=== PATIENT | male | born 1990 | race Caucasian/White ===

== ENCOUNTER 2018-05-01 00:47 | Inpatient (IN) ==
[2018-05-01] MEDS ORDERED: Diphtheria/Tetanus/Pertussis Vaccine Inj 0.5 ML Syringe IM ONE (01:16)
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
[2018-05-01 02:00] LABS: Baso % (Auto) 0.5 % (0.0-2.0); Eos # (Auto) 0.1 th/mm3 (0.0-0.4); Eos % (Auto) 1.4 % (0.0-4.0); Hematocrit 42.4 % (39.0-51.0); Hemoglobin 15.3 gm/dL (13.0-17.0); Lymph # (Auto) 2.3 th/mm3 (1.0-4.8); Lymph % (Auto) 28.6 % (9.0-44.0); Mean Corpuscular Hemoglobin 32.8 pg (27.0-34.0); Mean Corpuscular Volume 91.1 fL (80.0-100.0); Mean Platelet Volume 9.1 fL (7.0-11.0); Mono # (Auto) 0.6 th/mm3 (0.0-0.9); Neut # (Auto) 4.9 th/mm3 (1.8-7.7); Neut % (Auto) 61.5 % (16.0-70.0); Platelet Count 214 th/mm3 (150-450); Red Blood Count 4.66 mil/mm3 (4.50-5.90); Red Cell Distribution Width 12.3 % (11.6-17.2); White Blood Count 7.9 th/mm3 (4.0-11.0)
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
[2018-05-01 02:01] LABS: Mean Corpuscular HGB Conc 36.1 % (32.0-36.0)
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
[2018-05-01 02:06] LABS: INR 1.1 Ratio; Prothrombin Time 10.7 sec (9.8-11.6)
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
--- NOTE | 2018-05-01 02:11 | XR ---
EXAM DATE: 05/01/2018 2:04 AM EST AGE/SEX: 28 years / Male INDICATIONS: Shortness of breath. CLINICAL DATA: This is the patient's initial encounter. Patient reports that signs and symptoms have been present for 1 day and indicates a pain score of 0/10. MEDICAL/SURGICAL HISTORY: None. None. COMPARISON: No prior exams available for comparison. FINDINGS: A single AP view of the chest demonstrates the lungs to be symmetrically aerated without evidence of mass, infiltrate or effusion. The cardiomediastinal contours are unremarkable. Osseous structures a re intact. There appears to be some foreign material seen over the medial upper arm soft tissues. CONCLUSION: No acute cardiopulmonary process. Suspected foreign material seen in the medial upper arm soft tissues. Electronically signed by: Armen Espino MD Board Certified Radiologist 05/01/2018 2:10 AM EST
[2018-05-01 02:13] LABS: Alkaline Phosphatase 74 U/L (45-117); Thyroid Stimulating Hormone 0.816 uIU/mL (0.358-3.740); Total Protein 7.5 g/dL (6.4-8.2)
[2018-05-01 02:14] LABS: Alanine Aminotransferase 22 U/L (12-78); Albumin 4.2 g/dL (3.4-5.0); Anion Gap 8 meq/L (5-15); Aspartate Aminotransferase 18 U/L (15-37); Blood Urea Nitrogen 13 mg/dL (7-18); Calcium 8.6 mg/dL (8.5-10.1); Carbon Dioxide 25.3 meq/L (21.0-32.0); Chloride 107 meq/L (98-107); Glomerular Filtration Rate 66 mL/min (>89); Glucose,Random 89 mg/dL (74-106); Magnesium 2.3 mg/dL (1.5-2.5); Potassium 3.6 meq/L (3.5-5.1); Sodium 140 meq/L (136-145)
[2018-05-01 02:16] LABS: Activated Partial Thrombo Time 26.2 sec (23.4-31.7)
[2018-05-01] MEDS ORDERED: Morphine Inj 4 MG/ML Vial IV.PUSH ONE ×2 (02:21→04:07)
[2018-05-01] MEDS ORDERED: ceFAZolin 2 GM Premix Inj 2 GM/50 ML PIGGYBACK IV.SIG ONE (02:28)
[2018-05-01 02:41] LABS: Platelet Estimate Normal (Normal); Platelet Morphology Normal (Normal)
[2018-05-01 08:19] LABS: Amphetamine Screen,Urine Neg (Neg); Barbiturate Screen,Urine Neg (Neg); Cannabinoid Screen,Urine Pos (Neg); Cocaine Screen,Urine Pos (Neg)
[2018-05-01 08:25] LABS: Opiate Screen,Urine Pos (Neg)
[2018-05-01] MEDS ORDERED: Aluminum/Magnesium/Simethacone Susp 30 ML UDC PO PRN (13:43)
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
[2018-05-01] MEDS: Acetaminophen 325 MG Tablet PO PRN (21:39)
[2018-05-02 09:02] LABS: Calcium 9.3 mg/dL (8.5-10.1); Carbon Dioxide 29.9 meq/L (21.0-32.0); Potassium 3.8 meq/L (3.5-5.1)
[2018-05-02 09:07] LABS: Chol/HDL Ratio 8.16 Ratio; HDL Cholesterol 20.2 mg/dL (40.0-60.0)
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
[2018-05-02] MEDS: Acetaminophen 325 MG Tablet PO PRN ×2 (11:07→20:25)
[2018-05-02] MEDS: Sertraline 50 MG Tablet PO SCH (13:04)
[2018-05-02 13:23] LABS: Hemoglobin A1c 4.7 % (4.3-6.0)
--- NOTE | 2018-05-02 13:32 | ECG ---
Date Performed: 05/02/2018 Time Performed: 09:56:04 PTAGE: 28 years EKG: Sinus rhythm WITH SINUS ARRHYTHMIA POSSIBLE LEFT ATRIAL ENLARGEMENT BORDERLINE ECG NO PREVIOUS TRACING DOCTOR: Karl Emerson Interpretating Date/Time 05/02/2018 13:27:30
--- NOTE | 2018-05-02 17:16 | P.PNWCN ---
Wound Care Nurse Consult Additional information: Patient not seen, spoke with JIMMY Alves, patient has intact amanda to head laceration. RN reports it is oozing small amount of sanguinous drainage, was wanting suggestions of cover dressing, that does not include rolled gauze or ivana. Suggested Gentle border AG post op dressing or continue to leave open to air. Post op AG dressing can be left on for 3 days, is absorbent and has gentle border adhesion.
[2018-05-03 06:02] VITALS: RESP 18
[2018-05-03] MEDS: Sertraline 50 MG Tablet PO SCH (08:33)
[2018-05-03] MEDS: Acetaminophen 325 MG Tablet PO PRN ×4 (08:43→21:57)
--- NOTE | 2018-05-03 14:29 | P.PNPSY ---
Subjective Remarks: Patient was seen and case discussed with nursing. Patient minimizes his actions before admission. His mother states that he was suicidal per nursing which patient says "she is just mad at me." He describes his love triangle with his 2 girlfriends. He denies suicidal or homicidal ideation intent or plan. He is compliant with his medications. Having a productive visitation with 1 of his girlfriends today. Eating and sleeping well Review of Systems All other systems reviewed negative except as stated in HPI Mental Status Examination Appearance: Appropriate Consciousness: Alert Orientation: x4 Motor Activity: Normal gait Speech: Unremarkable Language: Adequate Fund of Knowledge: Adequate Attention and Concentration: Adequate Memory: Unremarkable Mood: Anxious Affect: Appropriate Thought Process & Associations: Intact, Logical Thought Content: Appropriate Hallucination Type: None Delusion Type: None Suicidal Ideation: No Suicidal Plan: No Suicidal Intention: No Homicidal Ideation: No Homicidal Plan: No Homicidal Intention: No Insight: Poor Judgment: Impulsive Assessment and Plan - Assessment (1) Adjustment disorder with depressed mood Code(s): F43.21 - Adjustment disorder with depressed mood Status: Acute - Plan Plan: Continue current treatment plan Justification for Continued Inpatient Stay: Patient would decompensate in a less restrictive setting
[2018-05-04] MEDS: Sertraline 50 MG Tablet PO SCH (08:37)
[2018-05-04] MEDS: Acetaminophen 325 MG Tablet PO PRN ×3 (08:38→21:05)
--- NOTE | 2018-05-04 14:48 | P.PNPSY ---
Subjective Remarks: Reviewed electronic medical records and discussed case with staff. Follow-up was conducted in the hallway with MARLENE Mcclain present. His nurse reports that he has been extremely cooperative and compliant on the unit. He is pleasant and has opened up about multiple external stressors in his life. Patient states that he feels he is "doing pretty good". States that he slept better has a good appetite. He also advises he has had visits with his mother and his girlfriend and reports that they have all gone well. Mental Status Examination Appearance: Appropriate Consciousness: Alert Orientation: x4 Motor Activity: Normal gait Speech: Unremarkable Language: Adequate Fund of Knowledge: Adequate Attention and Concentration: Adequate Memory: Unremarkable Mood: Anxious Affect: Appropriate Thought Process & Associations: Intact, Logical Thought Content: Appropriate Hallucination Type: None Delusion Type: None Suicidal Ideation: No Suicidal Plan: No Suicidal Intention: No Homicidal Ideation: No Homicidal Plan: No Homicidal Intention: No Insight: Poor Judgment: Impulsive Assessment and Plan - Assessment (1) Adjustment disorder with depressed mood Code(s): F43.21 - Adjustment disorder with depressed mood Status: Acute - Plan Plan: Patient will be reevaluated by the attending psychiatrist. Continue with current treatment plan. Justification for Continued Inpatient Stay: Moving this patient to a less restrictive environment would likely result in decompensation.
[2018-05-05 05:20] VITALS: BP 125/81; PULSE 67; TEMP 97.8; O2SAT 98
[2018-05-05] MEDS: Acetaminophen 325 MG Tablet PO PRN (07:45)
[2018-05-05] MEDS: Sertraline 50 MG Tablet PO SCH (08:03)
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
== END 2018-05-05 11:50 | disposition home or self-care (01) | DRG 881 ==
LOC: NEPC 00:47 → NEDA 14:02 → H270 14:11 → H260 05-04 15:18
PROVIDERS: ADMIT Student in an Organized Health Care Education/Training Program; ATTEND Student in an Organized Health Care Education/Training Program
CPT/HCPCS: 12005; 70450; 71010; 71045; 71260; 72125; 72170; 74177; 80048; 80053; 80061; 80307; 82948; 82962; 83036; 83735; 84443; 85025; 85610; 85730; 86850; 86900; 86901; 90471; 90715; 90765; 90775; 90776; 90791; 93005; 96365; 96375; 96376; 99285; J0690; J2270; Q0163; Q9967